=== PATIENT | male | born 1970 | race Two or more races ===

== ENCOUNTER 2019-05-01 05:23 | Emergency (ER) | payer OTHER ==
[~2019-05-01] VITALS: Ht 190.5 cm; Wt 104.3 kg
--- NOTE | 2019-05-01 05:35 | NUR ---
BIB [employer] FOR SOB AND COUGH FOR THE PAST MONTH. SATTING 95% ON R/A. PER PT W/ PMH OF ASTHMA. PT WAS PLACED ON A MONITOR , WILL CONT TO MONITOR,
--- NOTE | 2019-05-01 06:02 | NUR ---
Patient discharged to home in stable condition. Written and verbal after care instructions given. Patient verbalizes understanding of instruction. PT MEDICALLY CLEAR TO D/C AND OK TO BOOK PER MD
[2019-05-01 06:04] VITALS: BP 128/87
--- NOTE | 2019-05-01 06:04 | NUR ---
PT WAS D/C'D IN CUSTODY W/ [employer].
== END 2019-05-01 06:05 ==
LOC: ER 05:23
DX: R05 Cough (principal); I10 Essential (primary) hypertension; J45.909 Unspecified asthma, uncomplicated
CPT/HCPCS: 71045-TC